=== PATIENT | male | born 1955 | race Hispanic/Latino ===

== ENCOUNTER 2020-06-03 17:59 | Emergency (ER) | payer MEDICARE ==
--- NOTE | 2020-06-03 19:06 | RAD ---
RIGHT TIB/FIB TWO VIEWS: History: Injury Comparison: None FINDINGS: Cortical irregularity distal tibial tip, age indeterminate for injury. Mild demyelination. No acute d isplaced fracture or malalignment of the proximal tibia or fibula. High grade vascular calcifications . IMPRESSION: Age indeterminate injury of the distal tibial tip. Ankle radiographs recommended. POS: HOME
--- NOTE | 2020-06-03 20:11 | RAD ---
RIGHT ANKLE THREE VIEWS: History: Ankle injury. Comparison: Leg radiograph same date. FINDINGS: Moderate sized distal fibular tip fracture. There is a moderate to large ankle joint effusion. Small plantar calcaneal spur. Degenerative changes of the posterior subtalar joint. Bones are demineralized. IMPRESSION: 1. No displaced distal fibular tip fracture. 2. 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 3. Moderate joint effusion of the ankle. 4. High grade vascular calcifications. POS: HOME
== END 2020-06-03 21:30 | disposition home or self-care (01) ==
LOC: ERS 17:59
DX: S82.831A Other fracture of upper and lower end of right fibula, initial encounter for closed fracture (principal); S82.891A Other fracture of right lower leg, initial encounter for closed fracture; E78.5 Hyperlipidemia, unspecified; E78.00 Pure hypercholesterolemia, unspecified; I10 Essential (primary) hypertension; K21.9 Gastro-esophageal reflux disease without esophagitis; G40.909 Epilepsy, unspecified, not intractable, without status epilepticus; F17.210 Nicotine dependence, cigarettes, uncomplicated; Z79.899 Other long term (current) drug therapy; Z86.73 Personal history of transient ischemic attack (TIA), and cerebral infarction without residual deficits; X50.1XXA Overexertion from prolonged static or awkward postures, initial encounter